=== PATIENT | male | born 1965 | race Caucasian/White ===

== ENCOUNTER 2019-11-04 15:51 | Emergency (ER) | payer OTHER ==
[2019-11-04 16:12] VITALS: TEMP 98; BMI 47.5
--- NOTE | 2019-11-04 16:30 | PDOC ---
Attending Attestation - Resident Resident Name: Anthony Glynn - ED Attending Attestation I have performed the following: I have examined & evaluated the patient, The case was reviewed & discussed with the resident, I agree w/resident's findings & plan, Exceptions are as noted - HPI HPI: 11/04/19 16:32 53yo male with hx of afib on coumadin had his L lower molar extracted this AM. Pt stopped his coumadin for 2 days for the procedure. Pt has had bleeding since the procedure. Pt with packing in place, but mouth filling with blood. Pt feels lightheaded - Physicial Exam PE: 11/04/19 16:33 Gen: aaox3, diaphoretic heent: L lower molar extracted with active bleeding from the site, no arterial bleeding, but venous bleeding heart: +s1s2 irreg lungs: cta b/l abd: soft, obese, nt - Medical Decision Making 11/04/19 16:34 a/p: 53yo male on coumadin with L lower molar dental bleeding -surgicell placed in the wound, packing placed with persistent bleeding -pt spitting up blood and despite pressure still with blood in the mouth -tea bag placed to the gums and pt biting down -labs ordered for INR and h/h -call placed to [facility] for transfer to dental for persistent bleeding 11/04/19 16:[address] Kang who accepts pt in transfer for OMFS eval 11/04/19 17:00 discussed transfer in detail with the patient still bleeding pt agrees to transfer and signs paperwork 11/04/19 17:41 h/h stable 11/04/19 18:05 bleeding controlled ems here to transfer the patient Discharge - Discharge Information Problems reviewed: Yes Clinical Impression/Diagnosis: Surgical wound hemorrhage after dental procedure Condition: Critical Disposition: TRANSFER ACUTE CARE/OTHER HOSP - Follow up/Referral - Patient Discharge Instructions - Post Discharge Activity - Transfer to Acute Care Facility Receiving Facility Name: [facility] [address] Accepting Physician:: Dr. Kang
[2019-11-04] MEDS ORDERED: SODIUM CHLORIDE 0.9% 1000 ML INFUS.BAG IV ONE (16:39)
--- NOTE | 2019-11-04 16:41 | PDOC ---
History of Present Illness - General Chief Complaint: Toothache Stated Complaint: DENTAL BLEEDING Time Seen by Provider: 11/04/19 15:59 - History of Present Illness Initial Comments: The pt is a 53M w/ a history of HTN, HLD, A-fib (warfarin) who presents s/p left lower molar extraction for intra-oral hemorrhage. The pt reports that the tooth was extracted at 1400 today. The pt never had hemostasis. Reports being off of his warfarin for the last 2 days. He has never had anything like this happen before. Denies fevers/chills, YANEZ, vision changes, chest pain, trouble breathing, changes in sensation. 11/04/19 17:09 Past History - Past Medical History Allergies/Adverse Reactions: Allergies Allergy/AdvReac Type Severity Reaction Status Date / Time epinephrine Allergy Verified 11/04/19 15:55 iodine Allergy Verified 11/04/19 15:55 latex Allergy Verified 11/04/19 15:55 Home Medications: Ambulatory Orders Atenolol [Tenormin -] 25 mg PO DAILY 11/04/19 Atenolol [Tenormin] 37.5 mg PO DAILY 11/04/19 Digoxin [Lanoxin -] 0.125 mg PO DAILY 11/04/19 Warfarin Sodium [Coumadin] 5 mg PO ASDIR 11/04/19 Cardiac Disorders: Yes (Afib) COPD: No HTN: Yes - Psycho Social/Smoking Cessation Hx Smoking History: Never smoked Have you smoked in the past 12 months: No Information on smoking cessation initiated: No Hx Alcohol Use: No Drug/Substance Use Hx: No Review of Systems - Review of Systems Able to Perform ROS?: Yes Comments:: GENERAL/CONSTITUTIONAL: No fever or chills. No weakness HEAD, EYES, EARS, NOSE AND THROAT: No change in vision. No change in hearing. No sore throat CARDIOVASCULAR: No chest pain or shortness of breath RESPIRATORY: Denies cough, hemoptysis GASTROINTESTINAL: No nausea, vomiting, diarrhea or constipation GENITOURINARY: No dysuria, frequency, or change in urination MUSCULOSKELETAL: No joint or muscle swelling or pain. No neck or back pain SKIN: No rash NEUROLOGIC: No headache, vertigo, loss of consciousness, or change in strength/ sensation ENDOCRINE: No increased thirst. No abnormal weight change HEMATOLOGIC/LYMPHATIC: +warfarin ALLERGIC/IMMUNOLOGIC: No hives or skin allergy 11/04/19 17:11 Is the patient limited Senegalese proficient: No *Physical Exam - Vital Signs Last Vital Signs Temp Pulse Resp BP Pulse Ox 98 F 78 20 150/61 100 11/04/19 15:53 11/04/19 15:53 11/04/19 15:53 11/04/19 15:53 11/04/19 15:53 - Physical Exam GENERAL: Awake, alert, and oriented to person/place/time, in no acute distress HEAD: No signs of trauma, normoc ephalic, atraumatic EYES: PERRLA, EOMI, sclera anicteric, conjunctiva clear ENT: Profuse hemorrhage from the left lower posterior molar site LUNGS: No distress, speaks in full sentences, clear to auscultation bilaterally HEART: Regular rate and rhythm, normal S1 and S2, no murmurs appreciated, peripheral pulses normal and equal bilaterally ABDOMEN: Soft, nontender, normoactive bowel sounds. No guarding, no rebound EXTREMITIES: Normal inspection, Normal range of motion, no edema. No clubbing or cyanosis NEUROLOGICAL: Cranial nerves II through XII grossly intact. Normal speech, normal gait, no focal sensorimotor deficits SKIN: Warm, Dry 11/04/19 17:12 ED Treatment Course - LABORATORY CBC & Chemistry Diagram: 11/04/19 16:50 11/04/19 16:50 Medical Decision Making - Medical Decision Making The pt is a 53M w/ a history of HTN, HLD, A-fib (warfarin) who presents s/p left lower molar extraction for intra-oral hemorrhage. ED Course Labs sent Direct pressure applied with surgiseal, gelfoam, and gauze. Pressure was held for >20 minutes without hemostasis Plan for Transfer to [facility] for OMFS evaluation Pt accepted for transfer Pt given 2L IVF Leukocytosis noted, likely stress reaction, pt afebrile, procedure performed today No anemia Lytes wnl No KEM LFTs wnl Pt transferred to [facility] At time of transfer, bleeding controlled 11/04/19 18:21 Discharge - Discharge Information Problems reviewed: Yes Clinical Impression/Diagnosis: Surgical wound hemorrhage after dental procedure Condition: Critical Disposition: TRANSFER ACUTE CARE/OTHER HOSP - Admission No - Follow up/Referral - Patient Discharge Instructions - Post Discharge Activity - Transfer to Acute Care Facility Receiving Facility Name: [facility] Accepting Physician:: Dr. Kang
[2019-11-04] MEDS ORDERED: morphine CARPU-JECT 4 MG/1 ML DISP.SYRIN IVPUSH ONE (17:13)
[2019-11-04 17:25] LABS: ALBUMIN 3.8 g/dl (3.4-5.0); BASO % 0.2 % (0-2.0); BILIRUBIN,TOTAL 0.9 mg/dl (0.2-1); CALCIUM 9.1 mg/dl (8.5-10); CREATININE 0.8 mg/dl (0.55-1.3); EOS % 0.3 % (0-4.5); HEMATOCRIT 42.8 % (35.4-49); HEMOGLOBIN 13.9 GM/dl (11.7-16.9); LYMPH % 7.9 % (8-40); MCHC 32.3 g/dl (32.0-35.9); MEAN CELL VOLUME 86.4 fl (80-96); MEAN PLT VOLUME 8.4 fl (7.5-11.1); MONO % 5.1 % (3.8-10.2); NEUT % 86.5 % (42.8-82.8); PLATELET COUNT 256 K/MM3 (134-434); POTASSIUM 3.8 mmol/L (3.5-5.1); RBC 4.96 M/mm3 (4.00-5.60); RDW 13.6 % (11.9-15.9); TOT PROT 7.3 g/dl (6.4-8.2); WHITE BLOOD COUNT 14.8 K/mm3 (4.0-10.8)
[2019-11-04] MEDS ORDERED: morphine SULFATE 4 MG/ML VIAL ONE (17:29)
[2019-11-04 17:39] VITALS: BP 168/103; PULSE 100
[2019-11-04 18:15] LABS: INR 3.69 (0.82-1.09); PROTHROMBIN TIME (PATIENT) 40.3 SEC (10.2-13.0)
== END 2019-11-04 18:15 | disposition short-term general hospital (02) ==
LOC: EDBD 15:51 → FER 15:51
PROC: 3E033NZ Introduction of Analgesics, Hypnotics, Sedatives into Peripheral Vein, Percutaneous Approach (ICD-10-PCS; principal; 2019-11-04)
PROC: 3E0337Z Introduction of Electrolytic and Water Balance Substance into Peripheral Vein, Percutaneous Approach (ICD-10-PCS; 2019-11-04)
DX: Z88.8 Allergy status to other drugs, medicaments and biological substances (principal); Z91.040 Latex allergy status; I10 Essential (primary) hypertension; E78.5 Hyperlipidemia, unspecified; I48.91 Unspecified atrial fibrillation; Z79.01 Long term (current) use of anticoagulants; K13.79 Other lesions of oral mucosa
CPT/HCPCS: 36415; 80053; 85025; 85610; 85730; 86850; 86900; 86901; 99283-25; J7030